=== PATIENT | female | born 1955 | race Caucasian/White ===

== ENCOUNTER 2025-05-17 15:29 | Outpatient (AMB) | payer MEDICARE, MEDICAID, SELFPAY ==
--- OUTSIDE RECORDS SUMMARY | 2025-05-17 18:24 | XMS_ITS | Clinical Summary ---
Author Organization [facility] Address [address] [place] [address] Phone Care Team Providers Care Us Administrative Law Judge Name Role Phone Oralia Bullock MD Primary Care Provider Allergies Active Allergy Reactions Criticality Noted Date Comments Penicillin 03/23/2025 Other Reaction(s): PT states that it does not work on her Medications omeprazole OTC (PriLOSEC OTC) 20 mg EC tablet Take 1 tablet (20 mg total) by mouth 1 (one) time each day. Do not crush, chew, or split. Active dicyclomine (BENTYL) 20 mg tablet Take 1 tablet (20 mg total) by mouth 2 (two) times a day. Active buPROPion XL (WELLBUTRIN XL) 300 mg 24 hr tablet Take 1 tablet (300 mg total) by mouth 1 (one) time each day. Do not crush, chew, or split. Active traZODone (DESYREL) 100 mg tablet Take 1 tablet (100 mg total) by mouth at bedtime. Active lamoTRIgine (LaMICtal) 100 mg dispersible tablet Dissolve 75 mg on top of the tongue 1 (one) time each day. Active pravastatin (PRAVACHOL) 40 mg tablet Take 1 tablet (40 mg total) by mouth at bedtime. Active QUEtiapine (SEROquel) 100 mg tablet Take 2 tablets (200 mg total) by mouth at bedtime. Active QUEtiapine (SEROquel) 50 mg tablet Take 1 tablet (50 mg total) by mouth at bedtime. Active docusate sodium (PEREZ' LIQUI-GELS ORAL) Take 100 mg by mouth. 06/22/20 19 Active fluticasone propionate (FLONASE) 50 mcg/actuation nasal spray Administer into affected nostril(s). 01/27/20 24 Active omeprazole (PriLOSEC) [address] capsule Take 2 capsules (40 mg total) by mouth 1 (one) time each day. 02/23/20 Active ondansetron ODT (ZOFRAN-ODT) 4 mg disintegrating tablet DISSOLVE ONE TABLET BY MOUTH EVERY 8 HOURS NEEDED FOR NAUSEA & VOMITING 03/16/20 Active Nyamyc 100,000 unit/gram powder APPLY 1 APPLICATION TOPICALLY 3 TIMES A DAY; FOR HEAT RASH IN THE SKIN FOLDS. 03/16/20 25 Active multivit with minerals/lutein (MULTIVITAMIN 50 PLUS ORAL) Daily, 0 Refills, Maintenance, 07/23/22 3:11:00 PM EST, Partial fill upon patient request if the prescription is for a schedule II opioid drug. 07/23/20 Active Bacillus coagulans-inulin (Probiotic Formula, inulin,) 1 billion-250 cell-mg capsule Take 1 capsule by mouth. 06/16/20 Active famotidine (Pepcid) 20 mg tabletIndications: Gastroesophageal reflux disease, unspecified whether esophagitis present Take 1 tablet (20 mg total) by mouth 2 (two) times a day if needed for heartburn or indigestion (chest pain). 180 each 1 03/23/20 25 026 Active Additional Information Patient not taking.Reported on 05/10/2025 Active Problems Problem Noted Date Diagnosed Date Allergic rhinitis 03/22/2025 Bipolar I disorder, most rec ent episode mixed ([facility] V24, [facility] V28) 03/22/2025 Chronic alcoholism in remission ([facility] V24, [facility] V28) 03/22/2025 Dyslipidemia 03/22/2025 Hiatal hernia with GERD 03/22/2025 Irritable bowel syndrome with diarrhea Obesity 03/22/2025 Osteopenia 03/22/2025 Anxiety, generalized 03/22/2025 PTSD (post-traumatic stress disorder) 03/22/2025 Impaired fasting glucose 09/29/2011 Encounters Date Type Department Care Team Description 05/10/2025 9:30 AM EDT Anesthesia Event [facility] Endoscopy [address] [place] [address] Jhonatan Manning MD 05/10/2025 8:29 AM EDT - 05/10/2025 11:59 PM EDT Hospital Encounter [facility] Endoscopy [address] [place] [address] Gilbert Perez MD Johnson, Lorraine, CRNA Gomes, Sheldon B, MD Gastroesophageal reflux disease, unspecified whether esophagitis present; Lower abdominal pain; Vomiting Discharge Disposition: Home or Self Care 03/24/2025 Telephone Gastroenterology - [address] [place] [phone] Cecelia Alvarado MA 03/23/2025 3:34 PM EDT - 03/23/2025 11:59 PM EDT Hospital Encounter [facility] Xray [address] [place] [address] Lower abdominal pain Discharge Disposition: Home or Self Care 03/23/2025 2:40 PM EDT Office Visit Gastroenterology - [address] [phone] Pham Cross PA Gastroesophageal reflux disease, unspecified whether esophagitis present (Primary Dx); Lower abdominal pain 03/23/2025 Telephone Gastroenterology - [address] [place] [phone] Gilbert Perez MD 03/21/2025 Telephone Gastroenterology - [address] [phone] Norma Sunshine [place] 02/27/2025 Telephone Gastroenterology - [address] [phone] Gilbert Perez MD from Last 3 Months Surgical History Surgery Date Site/Laterality Comments HERNIA REPAIR APPENDECTOMY EYE SURGERY Right COLONOSCOPY 03/04/2017 ESOPHAGOGASTRODUODENOSCOPY 10/07/2021 negative gastric and esophageal biospies, small HH ESOPHAGOGASTRODUODENOSCOPY 05/11/2007 COLONOSCOPY 07/14/2024 COLONOSCOPY 08/26/2011 COLONOSCOPY 01/17/2004 TAx1 Medical History Medical History Date Comments Hiatal hernia Colon polyp Anemia Depression Family History Medical History Relation Name Comments Colon polyps Mother Relation Name Status Comments Mother Social History Tobacco Use Types Packs/Day Years Used Date Smoking Tobacco: Former Cigarettes Smokeless Tobacco: Former Tobacco Cessation:Counseling Given: Not Answered Alcohol Use Standard Drinks/Week Comments Not Currently 0 (1 standard drink = 0.6 oz pur e alcohol) Interpersonal Safety Answer Date Record ed Physical Abuse 05/10/2025 Verbal Abuse 05/10/2025 Comments No Sex and Gender Information Value Date Recorded Sex Assigned at Female 05/10/2025 8:27 AM EDT Legal Sex Female 5:23 PM EST Gender Identity Female 05/10/2025 8:27 AM EDT Sexual Orientation Not on file Obstetrics History Last Filed Vital Signs Vital Sign Reading Time Taken Comments Blood Pressure 121/69 05/10/2025 10:05 AM EDT Pulse 66 05/10/2025 10:05 AM EDT Temperature 36.7 C (98 F) 05/10/2025 9:45 AM EDT Respiratory Rate 18 05/10/2025 10:05 AM EDT Oxygen Saturation 98% 05/10/2025 10:05 AM EDT Inhaled Oxygen Concentration - - Weight 98.9 kg (218 lb) 05/10/2025 8:54 AM EDT Height 157.5 cm (5' 2 ) 05/10/2025 8:54 AM EDT Body Mass Index 39.87 05/10/2025 8:54 AM EDT Plan of Treatment Health Maintenance Due Date Last Done Comments Breast Cancer Screening 1955 Hepatitis A Vaccines (1 of 2 - Risk 2-dose series) 1975 Hepatitis B Vaccines (3 of 3 - 19+ 3-dose series) 02/12/1999 09/24/1998, 08/14/1998 Cholesterol Screening (Lipid Panel) 08/09/2022 Hepatitis C Screening 08/09/2022 Medicare Annual Wellness Visit 08/09/2022 Osteoporosis Screening (Bone Density Screening) 08/09/2022 Social Influencers of Health Screening 08/09/2022 Depression Screening 09/07/2024 COVID-19 Vaccine ( season) 2025 05/28/2024, 07/11/2023, 08/26/2021, Additional history exists Influenza Vaccine (#1) 2025 , 07/11/2023, 07/23/2022, Additional history exists Falls Risk Assessment 05/10/2026 05/10/2025 RSV Immunization Adult Patients (1 - 1-dose 75+ series) 2031 DTaP,Tdap,and Td Vaccines (4 - Td or Tdap) 01/26/2034 01/27/2024, 08/12/2013, 09/08/2007 Colorectal Cancer Screening: Colonoscopy 07/14/2034 07/14/2024 Pneumococcal Vaccine: 50+ Years Completed 12/18/2021, 10/13/2003 Zoster Vaccines Completed 06/08/2023, 08/14/2022 HIB Vaccines Aged Out No longer eligi ble based on patient's age to complete this topic HPV Vaccines Aged Out No longer eligi ble based on patient's age to complete this topic IPV Vaccines Aged Out No longer eligi ble based on patient's age to complete this topic MMR Vaccines Aged Out No longer eligi ble based on patient's age to complete this topic Meningococcal ACWY Vaccine Aged Out N o longer eligible based on patient's age to complete this topic Meningococcal B Vaccine Aged Out No l onger eligible based on patient's age to complete this topic RSV Immunization Patients Under 20 months Aged Out No longer eligible based on patient's age to complete this topic Varicella Vaccines Aged Out No longer eligible based on patient's age to complete this topic Procedures Procedure Name Priority Date/Time Associated Diagnosis Comments EGD Routine 05/10/2025 9:44 AM EDT Gastroesophageal reflux disease, unspecified whether esophagitis present Lower abdominal pain Vomiting TISSUE EXAM Routine 05/10/2025 9:37 AM EDT Gastroesophageal reflux disease, unspecified whether esophagitis present Lower abdominal pain Vomiting XR ABDOMEN 1 VIEW Routine 03/23/2025 3:4 5 PM EDT Lower abdominal pain COLONOSCOPY Routine 07/14/2024 10:49 AM EST Family history of malignant neoplasm of digestive organs Personal history of colon polyps, unspecified from Last 3 Months or Most Recently Relevant to Health Maintenance Results * EGD Anesthesia - MAC; [facility] ENDOSCOPY (05/10/2025 9:44 AM EDT) Anatomical Region Laterality Modality Endoscopy 05/10/2025 9:25 AM EDT Impressions 05/10/2025 9:44 AM EDT - Z-line regular, 35 cm from the incisors. - Medium-sized hiatal hernia. - Normal stomach. - Normal examined duodenum. Biopsied. - Several biopsies were obtained in the gastric antrum. Recommendation: - Discharge patient to home. - Resume previous diet. - Continue present medications. - Await pathology results. - Return to GI clinic as previously scheduled. Narrative 05/10/2025 9:44 AM EDT [facility] GI Patient Name: Madelyn Calles Procedure Date: 05/10/2025 9:25 AM Date of : 1955 Age: 69 Room: ROOM 16 Gender: Female Note Status: Finalized Attending MD: Gilbert Perez MD, Procedure Date No Time: 05/10/2025 Procedure: Upper GI endoscopy Indications: Gastro-esophageal reflux disease Providers: Gilbert Perez MD Referring MD: Gilbert Perez MD Medicines: Monitored Anesthesia Care Complications: No immediate complications. Estimated Blood Loss: Estimated blood loss: none. Procedure: Pre-Anesthesia Assessment: - ASA Grade Assessment: II - A patient with mild systemic disease. - After reviewing the risks and benefits, the patient was deemed in satisfactory condition to undergo the procedure. After obtaining informed consent, the endoscope was passed under direct vision. Throughout the procedure, the patient's blood pressure, pulse, and oxygen saturations were monitored continuously.The Endoscope was introduced through the mouth, and advanced to the third part of duodenum. The upper GI endoscopy was accomplished without difficulty. The patient tolerated the procedure well. Findings: The Z-line was regular and was found 35 cm from the incisors. A medium-sized hiatal hernia was found. The proximal extent of the gastric folds (end of tubular esophagus) was 35 cm from the incisors. The hiatal narrowing was 40 cm from the incisors. The exam of the esophagus was otherwise normal. The entire examined stomach was normal. Several biopsies were obtained in the gastric antrum with cold forceps for histology. Estimated blood loss was minimal. The examined duodenum was normal. Biopsies were taken with a cold forceps for histology. Estimated blood loss was minimal. Procedure Code(s): --- Professional --- 94978, Esophagogastroduodenoscopy, flexible, transoral; with biopsy, single or multiple Diagnosis Code(s): --- Professional --- K44.9, Diaphragmatic hernia without obstruction or gangrene CPT copyright 2020 [employer]. All rights reserved. The codes documented in this report are preliminary and upon online media director review may be revised to meet current compliance requirements. Gilbert Perez MD 05/10/2025 9:44:39 AM This report has been signed electronically.Gilbert Perez MD Number of Addenda: 0 Note Initiated On: 05/10/2025 9:25 AM Scope In: Scope Out: Endoscopy Department at [facility] - [address] [place] [phone] Procedure Note Gilbert Perez MD - 05/10/2025 [facility] GI Patient Name: Madelyn Calles Procedure Date: 05/10/2025 9:25 AM Date of : 1955 Age: 69 Room: ROOM 16 Gender: Female Note Status: Finalized Attending MD: Gilbert Perez MD, Procedure Date No Time: 05/10/2025 Procedure: Upper GI endoscopy Indications: Gastro-esophageal reflux disease Providers: Gilbert Perez MD Referring MD: Gilbert Perez MD Medicines: Monitored Anesthesia Care Complications: No immediate complications. Estimated Blood Loss: Estimated blood loss: none. Procedure: Pre-Anesthesia Assessment: - ASA Grade Assessment: II - A patient with mild systemic disease. - After reviewing the risks and benefits, thepatient was deemed in satisfactory condition to undergo the procedure. After obtaining informed consent, the endoscope was passed under direct vision. Throughout theprocedure, the patient's blood pressure, pulse, and oxygen saturations were monitored continuously.TheEndoscope was introduced through the mouth, and advanced tothe third part of duodenum. The upper GI endoscopy was accomplished without difficulty. The patienttolerated the procedure well. Findings: The Z-line was regular and was found 35 cm from the incisors. A medium-sized hiatal hernia was found. Theproximal extent of the gastric folds (end of tubularesophagus) was 35 cm from the incisors. The hiatal narrowingwas 40 cm from the incisors. The exam of the esophagus was otherwise normal. The entire examined stomach was normal. Several biopsies were obtained in the gastric antrum withcold forceps for histology. Estimated blood loss was minimal. The examined duodenum was normal. Biopsies weretaken with a cold forceps for histology. Estimated blood loss was minimal. Procedure Code(s): --- Professional --- 50532, Esophagogastroduodenoscopy, flexible, transoral; with biopsy, single or multiple Diagnosis Code(s): --- Professional --- K44.9, Diaphragmatic hernia without obstruction or gangrene CPT copyright 2020 [employer]. All rights reserved. The codes documented in this report are preliminary and upon online media director reviewmay be revised to meet current compliance requirements. Gilbert Perez MD 05/10/2025 9:44:39 AM This report has been signed electronically.Gilbert Perez MD Number of Addenda: 0 Note Initiated On: 05/10/2025 9:25 AM Scope In: Scope Out: Endoscopy Department at [facility] - [address] [place] [phone] IMPRESSION: - Z-line regular, 35 cm from the incisors. - Medium-sized hiatal hernia. - Normal stomach. - Normal examined duodenum. Biopsied. - Several biopsies were obtained in the gastricantrum. Recommendation: - Discharge patient to home. - Resume previous diet. - Continue present medications. - Await pathology results. - Return to GI clinic as previously scheduled. us Gilbert Perez MD GI~PROCEDURE ORDERABLES Final Result * Tissue exam (05/10/2025 9:37 AM EDT) Final Diagnosis A. Small Intestine, Duodenum, biopsies: - Duodenal mucosa with preserved villi and no specific pathologic changes. - Negative for increased intraepithelial lymphocytes. B. Gastric, Antrum, biopsies: - Gastric antral mucosa with no specific pathologic changes. - No Helicobacter pylori organisms are morphologically identified. 05/11/2025 10:36 AM EDT [facility] Gross Description A. Small Intestine, Duodenum, biopsies: Labeled duodenum biopsies . Received in formalin, are four irregular soft to rubbery, mckenzie-pink to red, velvety, tissue fragments, approximately ranging from 0.3 cm to 0.7 cm in greatest diameters, which are wrapped in paper and submitted in toto in one cassette, four pieces, multiple levels. B. Gastric, Antrum, biopsies: Labeled gastric, ant biopsies . Received in formalin, are three irregular soft to rubbery, mckenzie-pink to red, tissue fragments, approximately ranging from 0.35 cm to 0.55 cm in greatest diameters, which are wrapped in paper and submitted in toto in one cassette, three pieces, multiple levels. hs/DG 05/11/2025 10:36 AM EDT [facility] Disclaimer Unless otherwise specified, all tissue is 10% NB formalin fixed and paraffin embedded. 05/11/2025 10:36 AM EDT [facility] Tissue Duodenal structure / Unknown 05/10/2025 9:37 AM EDT 05/10/2025 10:21 AM EDT Tissue specimen (specimen) Pyloric antrum structure / Unknown 05/10/2025 9:38 AM EDT 05/10/2025 10:21 AM EDT us Gilbert Perez MD LAB PATHOLOGY ORDERABLES Brigida dominguez Result [facility] [address] [place] [address], * XR Abdomen 1 View (03/23/2025 3:45 PM EDT) Anatomical Region Laterality Modality Body Radiographic Bee ging 03/24/2025 11:4 6 AM EDT Impressions 03/24/2025 11:47 AM EDT Nonobstructive bowel gas pattern. There is no radiographic evidence of constipation as questioned clinically. Code 02299 -------- FINAL REPORT -------- Dictated By: Iban Chairez Dictated Date: 03/24/2025 11:46 ET Assigned Physician: Iban Chairez Reviewed and Electronically Signed By: Iban Chairez Signed Date: 03/24/2025 11:47 ET Workstation ID: [id number] Transcribed By: Self Edit Transcribed Date: 03/24/2025 11:46 ET Narrative 03/24/2025 11:47 AM EDT HISTORY: The patient is a 69-year-old female with abdominal pain and clinical concern for constipation. FINDINGS: Supine radiographs of the abdomen demonstrate hernia repair mesh. There are degenerative changes of the lumbar spine, particularly at the L3-4 level. The bowel gas pattern is nonobstructive. The volume of fecal material is not unusually increased. No mass or radiopaque calculus is seen. Procedure Note Iban Chairez MD - 03/24/2025 HISTORY: The patient is a 69-year-old female with abdominal pain andclinical concern for constipation. FINDINGS: Supine radiographs of the abdomen demonstrate hernia repairmesh. There are degenerative changes of the lumbar spine, particularly atthe L3-4 level. The bowel gas pattern is nonobstructive. The volume offecal material is not unusually increased. No mass or radiopaque calculusis seen. IMPRESSION: Nonobstructive bowel gas pattern. There is no radiographic evidence ofconstipation as questioned clinically. Code 21100 -------- FINAL REPORT -------- Dictated By: Iban Chairez Dictated Date: 03/24/2025 11:46 ET Assigned Physician: Iban Chairez Reviewed and Electronically Signed By: Iban Chairez Signed Date: 03/24/2025 11:47 ET Workstation ID: [id number] Transcribed By: Self Edit Transcribed Date: 03/24/2025 11:46 ET us Pham [facility] IMG XR PROCEDURES Final Result * COLONOSCOPY Anesthesia - MAC; [facility] ENDOSCOPY (07/14/2024 10:49 AM EST) Anatomical Region Laterality Modality Endoscopy 07/14/2024 10:3 0 AM EST Narrative 07/14/2024 10:52 AM EST [facility] GI Patient Name: Madelyn Calles Procedure Date: 07/14/2024 10:30 AM Date of : 1955 Age: 68 Room: ROOM 14 Gender: Female Note Status: Finalized Attending MD: Gilbert Perez MD, Procedure Date No Time: 07/14/2024 Procedure: Colonoscopy Indications: High risk colon cancer surveillance: Personal history of colonic polyps Providers: Gilbert Perez MD Referring MD: Gilbert Perez MD Medicines: Monitored Anesthesia Care Complications: No immediate complications. Estimated Blood Loss: Estimated blood loss: none. Procedure: Pre-Anesthesia Assessment: - ASA Grade Assessment: II - A patient with mild systemic disease. - After reviewing the risks and benefits, the patient was deemed in satisfactory condition to undergo the procedure. After I obtained informed consent, the scope was passed under direct vision. Throughout the procedure, the patient's blood pressure, pulse, and oxygen saturations were monitored continuously.The Colonoscope was introduced through the anus and advanced to the cecum, identified by appendiceal orifice and ileocecal valve. The colonoscopy was performed without difficulty. The patient tolerated the procedure well. The quality of the bowel preparation was good. Findings: Scattered small-mouthed diverticula were found in the sigmoid colon. Non-bleeding internal hemorrhoids were found during retroflexion. The hemorrhoids were small. The exam was otherwise without abnormality on direct and retroflexion views. Impression: - Diverticulosis in the sigmoid colon. - Non-bleeding internal hemorrhoids. - The examination was otherwise normal on direct and retroflexion views. - No specimens collected. Recommendation: - Discharge patient to home. - High fiber diet. - Continue present medications. - Repeat colonoscopy in 5 years for surveillance. - Return to GI office PRN. Gilbert Perez MD Gilbert Perez MD 07/14/2024 10:52:05 AM This report has been signed electronically.Gilbert Perez MD Number of Addenda: 0 Note Initiated On: 07/14/2024 10:30 AM Scope In: Scope Out: Endoscopy Department at [facility] - [address] [place] [phone] Procedure Note Gilbert Perez MD - 07/14/2024 [facility] GI Patient Name: Madelyn Calles Procedure Date: 07/14/2024 10:30 AM Date of : 1955 Age: 68 Room: ROOM 14 Gender: Female Note Status: Finalized Attending MD: Gilbert Perez MD, Procedure Date No Time: 07/14/2024 Procedure: Colonoscopy Indications: High risk colon cancer surveillance: Personalhistory of colonic polyps Providers: Gilbert Perez MD Referring MD: Gilbert Perez MD Medicines: Monitored Anesthesia Care Complications: No immediate complications. Estimated Blood Loss: Estimated blood loss: none. Procedure: Pre-Anesthesia Assessment: - ASA Grade Assessment: II - A patient with mild systemic disease. - After reviewing the risks and benefits, thepatient was deemed in satisfactory condition to undergo the procedure. After I obtained informed consent, the scope was passed under direct vision. Throughout theprocedure, the patient's blood pressure, pulse, and oxygen saturations were monitored continuously.The Colonoscope was introduced through the anus and advanced to the cecum, identified by appendiceal orifice and ileocecal valve. The colonoscopy was performed without difficulty. The patient tolerated the procedure well. The quality of the bowel preparation was good. Findings: Scattered small-mouthed diverticula were found inthe sigmoid colon. Non-bleeding internal hemorrhoids were found during retroflexion. The hemorrhoids were small. The exam was otherwise without abnormality ondirect and retroflexion views. Impression: - Diverticulosis in the sigmoid colon. - Non-bleeding internal hemorrhoids. - The examination was otherwise normal on directand retroflexion views. - No specimens collected. Recommendation: - Discharge patient to home. - High fiber diet. - Continue present medications. - Repeat colonoscopy in 5 years for surveillance. - Return to GI office PRN. Gilbert Perez MD Gilbert Perez MD 07/14/2024 10:52:05 AM This report has been signed electronically.Gilbert Perez MD Number of Addenda: 0 Note Initiated On: 07/14/2024 10:30 AM Scope In: Scope Out: Endoscopy Department at [facility] - [address] [place] [phone] us Gilbert Perez MD GI~PROCEDURE ORDERABLES Final Result from Last 3 Months or Most Recently Relevant to Health Maintenance Insurance * Guarantor: Madelyn Calles Account Type Relation to Patient Date of Phone Billing Address Personal/Family Self 1955 [address] [place] [address] MEDICARE MEDICAID - [place] Care Teams Us Administrative Law Judge Relationship Specialty Start Date End Date Oralia Bullock MD [address] [place] [address] PCP - General Internal Medicine 06/25/24
== END 2025-05-17 15:34 | disposition home or self-care (01) ==
PROVIDERS: PCP Internal Medicine; Visit Provider Registered Nurse Emergency
DX: J30.89 Other allergic rhinitis (principal)
CPT/HCPCS: 95117; 95165

== ENCOUNTER 2025-06-28 14:39 | Outpatient (AMB) | payer MEDICARE, MEDICAID, SELFPAY ==
--- OUTSIDE RECORDS SUMMARY | 2025-06-28 20:48 | XMS_ITS | Clinical Summary ---
Author Organization [facility] Address [address] [place] [address] Phone Care Team Providers Care Application Security Developer Name Role Phone Oralia Bullock MD Primary [...] I disorder, most rec ent episode mixed ([facility] V24, [facility] V28) 03/22/2025 Chronic alcoholism in remission ([facility] V24, [facility] V28) 03/22/2025 Dyslipidemia 03/22/2025 Hiatal hernia with GERD 03/22/2025 Irritable bowel syndrome with diarrhea Obesity 03/22/2025 Osteopenia 03/22/2025 Anxiety, generalized 03/22/2025 PTSD (post-traumatic stress disorder) 03/22/2025 Impaired fasting glucose 09/29/2011 Encounters Date Type Department Care Team Description 05/10/2025 9:30 AM EDT Anesthesia Event [facility] End[facility] [address] [place] [address] Jhonatan Manning MD 05/10/2025 8:29 AM EDT - 05/10/2025 11:59 PM EDT Hospital Encounter [facility] [address] [place] [phone] Gilbert Perez MD Johnson, Lorraine, CRNA Gomes, Sheldon B, MD Gastroesophageal reflux disease, unspecified whether esophagitis present; Lower abdominal pain; Vomiting Discharge Disposition: Home or Self Care from Last 3 Months Surgical History Surgery [...] Safety Answer Date Record ed Physical Abuse Unrecognized value 05/10/2025 Verbal Abuse Unrecognized value 05/10/2025 Comments No Sex and Gender Information [...] 08/12/2013, 09/08/2007 Colorectal Cancer Screening: Colonoscopy 07/14/2034 07/14/2024, 08/26/2021, 03/04/2017, Additional history exists Pneumococcal Vaccine: 50+ Years Completed 12/18/2021, 10/13/2003 [...] whether esophagitis present Lower abdominal pain Vomiting COLONOSCOPY Routine 07/14/2024 10:49 AM EST Family history of malignant neoplasm of digestive organs Personal history of colon polyps, unspecified from Last 3 Months or Most Recently Relevant to Health Maintenance Results * EGD Anesthesia - MAC; [facility] ENDOSCOPY (05/10/2025 9:44 AM [...] previously scheduled. Narrative 05/10/2025 9:44 AM EDT [facility] GI Patient Name: Madelyn Calles Procedure Date: [...] was minimal. Procedure Code(s): --- Professional --- 73000, Esophagogastroduodenoscopy, flexible, transoral; with biopsy, single or multiple Diagnosis Code(s): --- Professional --- K44.9, Diaphragmatic hernia without obstruction or gangrene CPT copyright 2020 [employer]. All rights reserved. The codes documented in this report are preliminary and upon supervisor telephone clerks review may be revised to meet current compliance requirements. Gilbert Perez MD 05/10/2025 9:44:39 AM This report has been signed electronically.Gilbert Perez MD Number of Addenda: 0 Note Initiated On: 05/10/2025 9:25 AM Scope In: Scope Out: Endoscopy Department at [facility] - [address] [place] [phone] Procedure Note Gilbert Perez MD - 05/10/2025 [facility] GI Patient Name: Madelyn Calles Procedure Date: [...] was minimal. Procedure Code(s): --- Professional --- 74875, Esophagogastroduodenoscopy, flexible, transoral; with biopsy, single or multiple Diagnosis Code(s): --- Professional --- K44.9, Diaphragmatic hernia without obstruction or gangrene CPT copyright 2020 [employer]. All rights reserved. The codes documented in this report are preliminary and upon supervisor telephone clerks reviewmay be revised to meet current compliance requirements. Gilbert Perez MD 05/10/2025 9:44:39 AM This report has been signed electronically.Gilbert Perez MD Number of Addenda: 0 Note Initiated On: 05/10/2025 9:25 AM Scope In: Scope Out: Endoscopy Department at [facility] - [address] [place] [phone] IMPRESSION: - Z-line regular, 35 cm from [...] are morphologically identified. 05/11/2025 10:36 AM EDT [facility] Gross Description A. Small Intestine, [...] multiple levels. hs/DG 05/11/2025 10:36 AM EDT [facility] Disclaimer Unless otherwise specified, all tissue is 10% NB formalin fixed and paraffin embedded. 05/11/2025 10:36 AM EDT [facility] Tissue Duodenal structure / Unknown 05/10/2025 9:37 AM EDT 05/10/2025 10:21 AM EDT Tissue specimen (specimen) Pyloric antrum structure / Unknown 05/10/2025 9:38 AM EDT 05/10/2025 10:21 AM EDT Gilbert Perez MD LAB PATHOLOGY ORDERABLES Brigida l Result [facility] ([facility] [address] [place] [address], * COLONOSCOPY Anesthesia - MAC; [facility] ENDOSCOPY (07/14/2024 10:49 AM EST) Anatomical Region Laterality Modality Endoscopy 07/14/2024 10:3 0 AM EST Narrative 07/14/2024 10:52 AM EST [facility] Patient Name: Madelyn Calles Procedure Date: [...] Scope In: Scope Out: Endoscopy Department at [facility] - [address] [place] [phone] Procedure Note Gilbert Perez MD - 07/14/2024 [facility] Patient Name: Madelyn Calles Procedure Date: [...] Scope In: Scope Out: Endoscopy Department at [facility] - [address] [place] [phone] Gilbert Perez MD GI~PROCEDURE ORDERABLES Final Result from Last 3 Months or Most Recently Relevant to Health Maintenance Insurance MEDICARE MEDICAID - [place] Care Teams Application Security Developer Relationship Specialty Start Date End Date Oralia Bullock MD [address] [place] [address] PCP - General Internal Medicine 06/25/24
== END 2025-06-28 14:40 | disposition home or self-care (01) ==
LOC: HO.HMGAL 14:39
PROVIDERS: PCP Internal Medicine; Visit Provider Registered Nurse Emergency
DX: J30.89 Other allergic rhinitis (principal)
CPT/HCPCS: 95117; 95165

== ENCOUNTER 2025-07-26 14:28 | Outpatient (AMB) | payer MEDICARE, MEDICAID, SELFPAY | END 2025-07-26 14:32 | disposition home or self-care (01) | LOC: HO.HMGAL 14:28 | PROVIDERS: PCP Internal Medicine; Visit Provider Registered Nurse Emergency | DX: J30.89 Other allergic rhinitis (principal) | CPT/HCPCS: 95117; 95165 ==

== ENCOUNTER 2025-08-21 15:32 | Outpatient (AMB) | payer MEDICARE, MEDICAID, SELFPAY ==
--- OUTSIDE RECORDS SUMMARY | 2025-08-21 21:58 | XMS_ITS | Clinical Summary ---
Author Organization [facility] Address [address] [place] [address] Phone Care Team Providers Care Sack Sewer Machine Name Role Phone Oralia Bullock MD Primary [...] Allergic rhinitis 03/22/2025 Bipolar I disorder, most recent episode mixed Chronic alcoholism in remission 03/22/2025 Dyslipidemia 03/22/2025 Hiatal hernia with GERD 03/22/2025 Irritable bowel syndrome with diarrhea Obesity 03/22/2025 Osteopenia 03/22/2025 Anxiety, generalized 03/22/2025 PTSD (post-traumatic stress disorder) 03/22/2025 Impaired fasting glucose 09/29/2011 Surgical History Surgery Date Site/Laterality Comments HERNIA [...] AM EDT Sexual Orientation Not on file Last Filed Vital Signs Vital Sign Reading [...] Procedure Name Priority Date/Time Associated Diagnosis Comments COLONOSCOPY Routine 07/14/2024 10:49 AM EST Family history of malignant neoplasm of digestive organs Personal history of colon polyps, unspecified from Last 3 Months or Most Recently Relevant to Health Maintenance Results * COLONOSCOPY Anesthesia - MAC; [facility] (07/14/2024 10:49 AM EST) Anatomical Region Laterality Modality Endoscopy 07/14/2024 10:3 0 AM EST Narrative 07/14/2024 10:52 AM EST [facility] GI Patient Name: Madelyn Calles Procedure Date: [...] Scope In: Scope Out: Endoscopy Department at [facility] - [address] [place] [phone] Procedure Note Gilbert Perez MD - 07/14/2024 [facility] GI Patient Name: Madelyn Calles Procedure Date: [...] Scope In: Scope Out: Endoscopy Department at [facility] - [address] [place] [phone] Gilbert Perez MD GI~PROCEDURE ORDERABLES Final Result from Last 3 Months or Most Recently Relevant to Health Maintenance Insurance MEDICARE MEDICAID - [place] Care Teams Sack Sewer Machine Relationship Specialty Start Date End Date Oralia Bullock MD [address] [place] [address] PCP - General Internal Medicine 06/25/24
== END 2025-08-21 15:35 | disposition home or self-care (01) ==
LOC: HO.HMGAL 15:32
PROVIDERS: PCP Internal Medicine; Visit Provider Registered Nurse Emergency
DX: J30.89 Other allergic rhinitis (principal)
CPT/HCPCS: 95117; 95165